=== PATIENT | male | born 1985 | race Caucasian/White ===

== ENCOUNTER 2019-06-04 12:23 | Emergency (ER) | payer SELFPAY ==
[~2019-06-04] VITALS: Ht 160 cm; Wt 71.7 kg
[2019-06-04 12:35] VITALS: BP 119/72
--- NOTE | 2019-06-04 12:42 | NUR ---
PT AMBULATED TO BED 6 W/ STEAY GAIT.
--- NOTE | 2019-06-04 12:45 | NUR ---
34 Y/O MALE C/O BURNING THROAT PAIN X 3 DAYS, WHICH PT HAS BEEN TAKING TYLENOL FOR, LAS TOOK TYLENOL 10PM LAST NIGHT . PT DENIES ANY TRAUMA. DENIES N/V/D; SKIN IS PINK/WARM/DRY; AAOX4 WITH EVEN AND STEADY GAIT; PT DENIES ANY FEVER, CP, SOB, OR COUGH AT THIS TIME; PATIENT STATES PAIN OF 8/10 AT THIS TIME; VSS; PATIENT POSITIONED FOR COMFORT; HOB ELEVATED; BEDRAILS UP X1; BED DOWN AND LOCKED. MEDICAL HX: DENIES NKA
--- NOTE | 2019-06-04 12:47 | NUR ---
AT BEDSIDE EXAMINING PT
--- NOTE | 2019-06-04 12:52 | NUR ---
strep swab collected
[2019-06-04 13:55] VITALS: BP 120/70
--- NOTE | 2019-06-04 13:55 | NUR ---
Patient discharged with v/s stable. Written and verbal after care instructions given and explained. Patient alert, oriented and verbalized understanding of instructions. Ambulatory with steady gait. All questions addressed prior to discharge. ID band removed. Patient advised to follow up with PMD. Rx of MOTRIN AND LORIN given. Patient educated on indication of medication including possible reaction and side effects. Opportunity to ask questions provided and answered.
== END 2019-06-04 13:55 | disposition home or self-care (01) ==
LOC: MED 12:23
DX: J30.2 Other seasonal allergic rhinitis (principal)
CPT/HCPCS: 87081; 99283